=== PATIENT | female | born 1965 | race Caucasian/White ===

== ENCOUNTER 2022-12-12 08:09 | Outpatient (REF) | payer BC, SELFPAY ==
[2022-12-12 11:30] LABS: MANUAL DIFF FLAG NO
[2022-12-12 11:48] LABS: Basophils Percent Auto 0.9 % (0-2); Eosinophils Absolute Auto 0.2 X10*3/uL (0.0-0.4); Eosinophils Percent Auto 3.4 % (0-4); Hematocrit 43.7 % (37.0-47.0); Hemoglobin 14.7 g/dl (12.0-16.0); Imm Gran Abs Auto 0.01 X10*3/uL (0.00-0.03); Imm Gran Pct Auto 0.2 % (0.0-0.4); Lymphocytes Absolute Auto 1.6 X10*3/uL (1.2-4.9); Lymphocytes Percent Auto 33.9 % (20-40); Mean Corpuscular HGB Conc 33.6 g/dl (31.0-35.0); Mean Corpuscular Hemoglobin 30.4 pg (27.0-33.0); Mean Corpuscular Volume 90.5 fL (80.0-98.0); Mean Platelet Volume 11.2 fL (9.4-12.3); Monocytes Absolute Auto 0.3 X10*3/uL (0.1-1.2); Monocytes Percent Auto 5.4 % (2-11); Neutrophils Absolute Auto 2.6 x10*3/uL (2.0-8.3); Neutrophils Percent Auto 56.2 % (45-73); Platelet Count 165 X10*3/uL (160-400); Red Blood Count 4.83 X10*6/uL (4.20-5.50); Red Cell Distribution Width 12.7 % (11.0-16.0); White Blood Count 4.7 X10*3/uL (4.8-10.8)
[2022-12-12 12:08] LABS: Alanine Aminotransferase 15 U/L (0-31); Albumin Level 4.2 g/dL (3.5-5.0); Alkaline Phosphatase 69 U/L (39-117); Anion Gap 14 (12-20); Aspartate Amino Transferase 19 U/L (5-31); Bilirubin Total 0.8 mg/dL (0.0-1.0); Blood Urea Nitrogen 16 mg/dL (9-16); Carbon Dioxide 25 mmol/L (22-29); Chloride 109 mmol/L (96-108); Cholesterol 206 mg/dL; Estimated Glomerular Filt Rate > 60; Glucose Fasting 82 mg/dL (60-99); HDL Cholesterol 52 mg/dL; LDL Cholesterol Calculated 129 mg/dl; Sodium 144 mmol/L (135-145); Total Protein 6.9 g/dL (6.5-8.0); Triglycerides 129 mg/dL
[2022-12-12 12:25] LABS: TSH reflex Free T4 1.23 uIU/mL (0.32-4.0)
[2022-12-17 12:43] LABS: Vitamin D 25-OH, D2 <4 ng/mL; Vitamin D 25-OH, D3 35 ng/mL; Vitamin D 25-OH, Total 35 ng/mL (30-100)
== END 2022-12-12 08:10 | disposition home or self-care (01) ==
LOC: HO.HMGCLDS 08:09
PROVIDERS: PCP Internal Medicine; Visit Provider Internal Medicine
DX: Z00.00 Encounter for general adult medical examination without abnormal findings (principal); E66.9 Obesity, unspecified
CPT/HCPCS: 36415; 80053; 80061; 82306; 84443; 85025

== ENCOUNTER 2023-05-09 13:26 | Outpatient (AMB) | payer BC, SELFPAY ==
[2023-05-09 14:03] VITALS: BP 122/80; PULSE 78; TEMP 36.7; O2SAT 96; BMI 48.8
--- NOTE | 2023-05-09 14:03 | MHC.OFFWIV ---
Intake Vital Signs 05/09/23 14:03 Height 5 ft 1 in Weight 258 lb 8 oz BMI 48.8 BP 122/80 Blood Pressure Location Lt brachial Position Sitting Pulse 78 Pulse Source Pulse Oximeter Temp 98.1 F Temp Source Temporal Artery Scan Pulse Oximetry (%) 96 Oxygen Delivery Method Room Air Intake Visit Reasons: Poison Martha Intake Note: pt is here for c/o poison martha Patient Tobacco Use Status: Never used Tobacco Allergies acetaminophen [From Percocet] Adverse Reaction (Verified 05/09/23 14:04) rash oxycodone [From Percocet] Adverse Reaction (Verified 05/09/23 14:04) rash Do you need a note to return to daycare/school/sports/work: Yes HPI HPI Comments History of Present Illness Details This is a 57-year-old female with no stated past medical history presenting for evaluation of itchy red lesions on her arms bilaterally that have been present for the past 5 days. Patient states approximately 8 days ago she was at her camp in [place] removing weeds from the rock wall and she believes there was poison martha present. Patient has been using wbvq-[id number] soaps, cortisone cream and ointments including calamine lotion without complete relief of her discomfort. 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 Tobacco Use Status: Never used Tobacco e-Cigarette/Vaping Use: Never Used service: No Current occupational status: employed Cognitive needs: No Hearing needs: No Vision needs: Yes Review of Systems Const All systems reviewed & are unremarkable except as noted in HPI and below Denies chills, Denies fatigue and Denies fever(s) Skin/Breast Reports system reviewed and no additional complaints, except as documented, Reports pruritus and Reports lesions Neuro Reports no additional complaints Endo Denies fatigue Physical Exam Vital Signs: Last Vital Signs Temp 98.1 F 05/09/23 14:03 Pulse 78 05/09/23 14:03 BP 122/80 05/09/23 14:03 Pulse Ox 96 05/09/23 14:03 Oxygen Delivery Method Room Air 05/09/23 14:03 BMI result Body Mass Index 48.8 Const General: cooperative, healthy appearing, comfortable, no acute distress and well developed Nutritional Appearance: overweight Orientation/consciousness: patient oriented x3 Skin General skin exam: erythema Lesions: lesion noted (grouped vesicles in linear pattern volar surfaces of forearms bilaterally) and other ( No evidence of a secondary cellulitis) Neuro General: patient oriented x3 Assessment & Plan Assessment & Plan (1) Poison martha dermatitis: Code(s): L23.7 - Allergic contact dermatitis due to plants, except food Plan: Patient will be discharged home with a prednisone taper and she will follow up with her primary care physician within 7-10 days if her symptoms have not improved. Medications: New prednisone 20 mg orally 60mg x 3 days, 40mg x 3 days, 20mg x 3 days; 18 tabs 0RF Coding Level of Care Code Est Pt Level 3 (57361) Diagnoses Poison martha dermatitis L23.7 Time Spent (min) 20
== END 2023-05-09 14:47 | disposition home or self-care (01) ==
PROVIDERS: PCP Internal Medicine; Visit Provider Physician Assistant
DX: L23.7 Allergic contact dermatitis due to plants, except food (principal)
CPT/HCPCS: 99213

== ENCOUNTER 2024-03-01 08:02 | Outpatient (AMB) | payer BC, SELFPAY ==
--- NOTE | 2024-03-01 08:05 | A.OFFPC_ITS ---
Vital Signs 03/01/24 08:06 Height 5 ft 1 in Weight 212 lb BMI 40.1 BP 108/64 Blood Pressure Location Rt brachial Position Sitting Pulse 59 Pulse Source Pulse Oximeter Pulse Oximetry (%) 98 Oxygen Delivery Method Room Air Intake Visit Reasons: Annual PE Intake Note: Pt is here today for PE. Allergies acetaminophen [From Percocet] Adverse Reaction (Verified 03/01/24 08:07) rash oxycodone [From Percocet] Adverse Reaction (Verified 03/01/24 08:07) rash Medication List - Last Reconciled 03/01/24 by Katie Deshpande MD triamcinolone acetonide 0.1% 1 appl topical DAILY Tobacco use date assessed: 03/01/24 Dental Screening Dental Screen Date: 03/01/24 Did you have a dental visit in the last 12 months?: Yes Did you have a dental problem in the last 6 months where you did not have access to dental care?: No Was dental information given to patient?: Patient has dentist HPI Annual PE HPI Details Pt presents for PE. 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 1. Little interest or pleasure in doing things: not at all 2. Feeling down, depressed, or hopeless: not at all 3. Trouble falling or staying asleep, or sleeping too much: not at all 4. Feeling tired or having little energy: not at all 5. Poor appetite or overeating: not at all 6. Feeling bad about yourself - or that you are a failure or have let yourself or your family down: not at all 7. Trouble concentrating on things, such as reading the newspaper or watching television: not at all 8. Moving or speaking so slowly that other people could have noticed. Or the opposite - being so fidgety or restless that you have been moving around a lot more than usual: not at all 9. Thoughts that you would be better off or of hurting yourself in some way: not at all Total score: 0 Depression Screening Interpretation: Negative Depression Screening Done: Yes 30466 - PHQ-9 Billing: Yes Source: Developed by Drs. Trace Dougherty, Delicia Ramos, Hernandez Jenkins and colleagues, with an educational porsha from [email or web address] ([employer]). Thrive Questionnaire Date Thrive assessed: 03/01/24 I am a: Patient What is your living situation today?: I have a steady place to live Within the past 12 months, did the food you bought not last and you didn't have the money to get more?: Never true Within the past 12 months, did you worry whether your food would run out before you got money to buy more?: Never true Do you have trouble paying for medicines?: No Do you have trouble getting transportation to medical appointments?: No Do you have trouble paying your heating and electricity bill?: No Do you have trouble taking care of your child, family member or friend?: No Do you have trouble with day-to-day activities such as bathing, preparing meals, shopping, managing finances, etc.?: No Are you currently unemployed and looking for a job?: No Are you interested in more education?: No Please select the resources that you would like help with: Housing/Long Term Currently or been in a relationship where the following occur: No concerns reported THRIVE Score: 0 AUDIT C Alcohol Use Questionnaire (AUDIT-C) 1. How often do you have a drink containing alcohol?: 2-4 times a month 2. How many drinks containing alcohol do you have on a typical day when you are drinking?: 1 or 2 3. How often do you have six or more drinks on one occasion?: Never Total Score: 2 JOSH-7 AMB Questionnaire JOSH-7 Date JOSH - 7 assessed: 03/01/24 Feeling nervous, anxious, or on edge: 0 = Not at all Not being able to stop or control worryin = Not at all Worrying too much about different things: 0 = Not at all Trouble relaxin = Not at all Being so restless that it is hard to sit still: 0 = Not at all Becoming easily annoyed or irritable: 0 = Not at all Feeling afraid as if something awful might happen: 0 = Not at all Total JOSH-7 score (0-4 normal; 5-9 mild; 10-14 moderate; 15-21 severe): 0 Source: Developed by Drs. Trace Dougherty, Delicia Ramos, Hernandez Jenkins and colleagues, with an educational porsha from [email or web address] ([employer]). Review of Systems Const All systems reviewed & are unremarkable except as noted in HPI and below Eyes Reports no additional complaints ENT Reports no additional complaints Card Reports no additional complaints Resp Reports no additional complaints GI Reports no additional complaints Reports no additional complaints Musc Reports no additional complaints Physical exam (Primary Care) Vital Signs: Last Vital Signs Pulse 59 03/01/24 08:06 BP 108/64 03/01/24 08:06 Pulse Ox 98 03/01/24 08:06 Oxygen Delivery Method Room Air 03/01/24 08:06 BMI result Body Mass Index 40.1 Tobacco/Smoking Status: Tobacco use Status Tobacco use date assessed 03/01/24 03/01/24 08:11 Patient Tobacco Use Status Never used Tobacco 03/01/24 08:11 e-Cigarette/Vaping Use Never Used 03/01/24 08:11 PHQ-9: PHQ-9 Score PHQ-9: Total score 0 03/01/24 08:11 Depression Screening Interpretation: Negative Thrive Assessment: Date of Thrive Assessment Date Thrive assessed 03/01/24 03/01/24 08:11 Currently or been in a relationship where the following occur: No concerns reported Const General: no acute distress HENMT Other: 3 cm soft subcutenous mass, no tender mobile Ears: hearing grossly normal bilaterally Face and sinus: Yes normal facial exam Mouth: Normal oral and palatal mucosa present Eyes General: appearance normal, both eyes and all related structures Neck Neck: Yes no lymphadenopathy and Yes supple Resp Effort & Inspection: normal respiratory effort Auscultation: clear to auscultation bilaterally Cardio Rhythm: regular rhythm Heart sounds: S1 normal heart sound present and S2 normal heart sound present GI Inspection: Yes normal to inspection Palpation (GI): Soft to palpation Percussion: Yes normal to percussion Auscultation: normal bowel sounds Assessment and Plan Assessment & Plan (1) Lipoma of skin: Comment: forehead Code(s): D17.30 - Benign lipomatous neoplasm of skin and subcutaneous tissue of unspecified sites Plan: refer to surgeon (2) Eczema: Code(s): L30.9 - Dermatitis, unspecified Plan: refer to dermatology (3) Annual physical exam: Code(s): Z00.00 - Encounter for general adult medical examination without abnormal findings Plan: Well-balanced diet regular physical activity discussed with the patient. She is up-to-date with the mammogram Pap smear colonoscopy. (4) Hx of colonoscopy: Comment: at 52 Code(s): Z98.890 - Other specified postprocedural states Orders: Orders Lipid Panel Today Z00.00 - Encounter for general adult medical examination without abnormal findings, Z98.890 - Other specified postprocedural states Comprehensive [place]. Panel Fast Today Z00.00 - Encounter for general adult medical examination without abnormal findings, Z98.890 - Other specified postprocedural states Complete Blood Count Auto Diff Today Z00.00 - Encounter for general adult me dical examination without abnormal findings, Z98.890 - Other specified postprocedural states Referrals General Surgery Referral D17.30 - Benign lipomatous neoplasm of skin and subcutaneous tissue of unspecified sites Dermatology Referral L30.9 - Dermatitis, unspecified Medications: New triamcinolone acetonide 0.1% 1 appl topical DAILY 30 grams 0RF Coding Level of Care Code Est Pt Prev Care 40-64y(85886) Diagnoses Lipoma of skin D17.30 Eczema L30.9 Annual physical exam Z00.00 Hx of colonoscopy Z98.890
[2024-03-01 08:06] VITALS: BP 108/64; PULSE 59; O2SAT 98; BMI 40.1
== END 2024-03-01 08:49 | disposition home or self-care (01) ==
PROVIDERS: PCP Internal Medicine; Visit Provider Internal Medicine
DX: D17.30 Benign lipomatous neoplasm of skin and subcutaneous tissue of unspecified sites (principal); L30.9 Dermatitis, unspecified; Z00.00 Encounter for general adult medical examination without abnormal findings; Z98.890 Other specified postprocedural states
CPT/HCPCS: 99396

== ENCOUNTER 2024-03-01 08:41 | Outpatient (REF) | payer BC, SELFPAY ==
[2024-03-01 10:00] LABS: MANUAL DIFF FLAG NO
[2024-03-01 10:06] LABS: Basophils Percent Auto 0.6 % (0-2); Eosinophils Absolute Auto 0.1 X10*3/uL (0.0-0.4); Eosinophils Percent Auto 2.4 % (0-4); Hematocrit 45.1 % (37.0-47.0); Hemoglobin 15.4 g/dl (12.0-16.0); Imm Gran Abs Auto 0.01 X10*3/uL (0.00-0.03); Imm Gran Pct Auto 0.2 % (0.0-0.4); Lymphocytes Absolute Auto 1.8 X10*3/uL (1.2-4.9); Mean Corpuscular HGB Conc 34.1 g/dl (31.0-35.0); Mean Corpuscular Volume 90.9 fL (80.0-98.0); Mean Platelet Volume 11.3 fL (9.4-12.3); Monocytes Absolute Auto 0.4 X10*3/uL (0.1-1.2); Monocytes Percent Auto 7.1 % (2-11); Neutrophils Absolute Auto 3.1 x10*3/uL (2.0-8.3); Neutrophils Percent Auto 56.7 % (45-73); Platelet Count 165 X10*3/uL (160-400); Red Blood Count 4.96 X10*6/uL (4.20-5.50); Red Cell Distribution Width 12.3 % (11.0-16.0); White Blood Count 5.4 X10*3/uL (4.8-10.8)
[2024-03-01 10:30] LABS: Alanine Aminotransferase 18 U/L (0-31); Albumin Level 4.4 g/dL (3.5-5.0); Alkaline Phosphatase 80 U/L (39-117); Anion Gap 9 (12-20); Aspartate Amino Transferase 18 U/L (5-31); Bilirubin Total 0.6 mg/dL (0.0-1.0); Blood Urea Nitrogen 21 mg/dL (9-16); Calcium 10.5 mg/dL (8.4-10.2); Carbon Dioxide 30 mmol/L (22-29); Chloride 108 mmol/L (96-108); Cholesterol 174 mg/dL (<200); Estimated Glomerular Filt Rate > 60; Glucose Fasting 95 mg/dL (60-99); HDL Cholesterol 51 mg/dL (>40); LDL Cholesterol Calculated 104 mg/dL (<100); Potassium 4.3 mmol/L (3.3-5.1); Sodium 143 mmol/L (135-145); Total Protein 7.1 g/dL (6.5-8.0); Triglycerides 99 mg/dL (<150)
== END 2024-03-01 08:42 | disposition home or self-care (01) ==
LOC: HO.HMGCLDS 08:41
PROVIDERS: PCP Internal Medicine; Visit Provider Internal Medicine
DX: Z00.00 Encounter for general adult medical examination without abnormal findings (principal); Z98.890 Other specified postprocedural states
CPT/HCPCS: 36415; 80053; 80061; 85025

== ENCOUNTER 2024-03-11 12:56 | Outpatient (REF) | payer BC, SELFPAY | END 2024-03-11 12:57 | disposition home or self-care (01) | LOC: HO.LNP 12:56 | PROVIDERS: PCP Internal Medicine; Referring Provider Internal Medicine; Visit Provider Surgery | DX: K72.11 Chronic hepatic failure with coma (principal) | CPT/HCPCS: 11423; 88304 ==

== ENCOUNTER 2024-03-11 12:56 | Outpatient (AMB) | payer BC, SELFPAY ==
[2024-03-11 13:02] VITALS: BP 156/77; PULSE 70; BMI 40.4
--- NOTE | 2024-03-11 13:02 | MHC.OFFVIS ---
Vital Signs 03/11/24 13:02 Height 5 ft 1 in Weight 214 lb BMI 40.4 BP 156/77 H Blood Pressure Location Rt brachial Position Sitting Pulse 70 Intake Visit Reasons: ? lipoma~ forehead Intake Note: Patient referred by pcp Dr. Deshpande for ? lipoma on forehead. Present for yrs. Hx of other lipomas removed by Dr. Chen at the [facility] in [place]. Patient c/o: enlarging, itchy. Denies pain. 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 She has had this several years time. She would like to have removed because it is increasing in size and become more symptomatic. She has had multiple cysts over the years excised from the scalp. 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 Tobacco Use Status: Never used Tobacco e-Cigarette/Vaping Use: Never Used service: No Current occupational status: employed Cognitive needs: No Hearing needs: No Vision needs: Yes Physical Exam Vital Signs: Last Vital Signs Pulse 70 03/11/24 13:02 BP 156/77 H 03/11/24 13:02 BMI result Body Mass Index 40.4 HEENT Other: Proximally 3 x 2 cm left frontal scalp octavio Office Procedures Excision Details: Risks, benefits, alternatives of excision of frontal scalp cyst reviewed the patient included but not limited to bleeding, infection, recurrence, numbness, pain, scarring the patient wished to proceed. All questions answered Consent was signed. After appropriate positioning, patient underwent 1% lidocaine and Betadine prep and a longitudinal incision made over the left frontal cyst in question with its uneventful enucleation. Specimen sent to pathology. Wound was irrigated, secured hemostasis, and closed using interrupted 2-0 Prolene suture followed by bacitracin. Patient tolerated procedure well 70424-[id number] scalp/neck/hands/feet/genitalia 2.1cm-3cm Procedure code (CPT) selection complete Office Meds lidocaine 1 %-epinephrine 1:100,000 injection solution Performing Provider: Aaron Luevano MD Performing Location: [facility] [place] General Surgeons Administered by: Aaron Luevano MD on 03/11/24 13:57 Dose Route Admin Location Dispensed Lot Number Expiration Date NDC Wash Test Checker 10 mL Infiltration 10 mL Assessment & Plan Assessment & Plan (1) Pilar cyst of scalp: Code(s): L72.11 - Pilar cyst Category: Surgical Plan: Patient has been given local instructions including isolate the wound periodically, Tylenol and/or Motrin p.r.n. pain, may shower tomorrow, bacitracin to the wound each day, and the patient will see me in 1.5 weeks time or p.r.n.. All questions answered Orders: Orders Surgical Today D17.30 - Benign lipomatous neoplasm of skin and subcutaneous tissue of unspecified sites, L72.11 - Pilar cyst AMB Excision Today L72.11 - Pilar cyst Medications: New lidocaine-epinephrine 1 %-1:100,000 10 mL Infiltration ONCE 30 mL 0RF L72.11 - Pilar cyst Coding Level of Care Code New Pt Level 5 (38009) Diagnoses Pilar cyst of scalp L72.11 CPT Codes Scalp/Neck/Hands/Feet/Genetalia - CPT: 07896-Fjtysqhk scalp/neck/hands/feet/genitalia 2.1cm-3cm ([id number])
== END 2024-03-11 13:28 | disposition home or self-care (01) ==
PROVIDERS: PCP Internal Medicine; Referring Provider Internal Medicine; Visit Provider Surgery
DX: L72.11 Pilar cyst (principal)
CPT/HCPCS: 11423; 99204

== ENCOUNTER 2024-03-20 08:08 | Outpatient (AMB) | payer BC, SELFPAY ==
--- NOTE | 2024-03-20 08:15 | A.OFFVIS_ITS ---
Intake Visit Reasons: 1 07/25 we follow up ? lipoma~ forehead Intake Note: Patient here s/p exc on mid frontal scalp line on 03-11-2024. Reports incision healing well. Patient c/o: 2 sutures removed without incident. 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 No wound issues or complaints. Pathology was benign. 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 Wound clean dry and intact. Assessment & Plan Assessment & Plan (1) Postop check: Code(s): Z09 - Encounter for follow-up examination after completed treatment for conditions other than malignant neoplasm Category: Surgical (2) Pilar cyst of scalp: Code(s): L72.11 - Pilar cyst Category: Surgical Plan Patient was given local instructions, and will follow-up p.r.n.. All questions answered Coding Level of Care Code Global (17929) Diagnoses Postop check Z09 Pilar cyst of scalp L72.11
== END 2024-03-20 08:26 | disposition home or self-care (01) ==
PROVIDERS: PCP Internal Medicine; Visit Provider Surgery
DX: Z09 Encounter for follow-up examination after completed treatment for conditions other than malignant neoplasm (principal); L72.11 Pilar cyst
CPT/HCPCS: 99024

== ENCOUNTER → 2024-03-20 08:08 | Outpatient (BNVA) | payer BC, SELFPAY | PROVIDERS: PCP Internal Medicine; Visit Provider Surgery ==

== ENCOUNTER 2025-03-28 08:24 | Outpatient (AMB) | payer BC, SELFPAY ==
--- NOTE | 2025-03-28 08:27 | MHC.PC.OV ---
Vital Signs 03/28/25 08:36 Height 5 ft 1 in Weight 232 lb BMI 43.8 BP 110/70 Blood Pressure Location Rt brachial Position Sitting Respiration 18 Pulse 62 Pulse Source Pulse Oximeter Temp 98.2 F Temp Source Oral Pulse Oximetry (%) 97 Oxygen Delivery Method Room Air Intake Visit Reasons: Annual PE Intake Note: Pt is here today for PE. Allergies acetaminophen (From Percocet) Adverse Reaction (Verified 03/28/25 08:37) rash oxycodone (From Percocet) Adverse Reaction (Verified 03/28/25 08:37) rash Medication List - Last Reconciled 03/28/25 by Katie Deshpande MD triamcinolone acetonide 0.1% 1 appl topical DAILY Tobacco use date assessed: 03/28/25 Dental Screening Dental Screen Date: 03/28/25 Did you have a dental visit in the last 12 months?: Yes Did you have a dental problem in the last 6 months where you did not have access to dental care?: No Was dental information given to patient?: Patient has dentist HPI Annual PE HPI Details Pt presents for PE. 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 1. Little interest or pleasure in doing things: not at all 2. Feeling down, depressed, or hopeless: not at all 3. Trouble falling or staying asleep, or sleeping too much: not at all 4. Feeling tired or having little energy: not at all 5. Poor appetite or overeating: not at all 6. Feeling bad about yourself - or that you are a failure or have let yourself or your family down: not at all 7. Trouble concentrating on things, such as reading the newspaper or watching television: not at all 8. Moving or speaking so slowly that other people could have noticed. Or the opposite - being so fidgety or restless that you have been moving around a lot more than usual: not at all 9. Thoughts that you would be better off or of hurting yourself in some way: not at all Total score: 0 Depression Screening Interpretation: Negative Depression Screening Done: Yes 57385 - PHQ-9 Billing: Yes Source: Developed by Drs. Trace Dougherty, Delicia Ramos, Hernandez Jenkins and colleagues, with an educational porsha from [employer]. Thrive Questionnaire Date Thrive assessed: 03/28/25 I am a: Patient What is your living situation today?: I have a steady place to live Within the past 12 months, did the food you bought not last and you didn't have the money to get more?: Never true Within the past 12 months, did you worry whether your food would run out before you got money to buy more?: Never true Do you have trouble paying for medicines?: No Do you have trouble getting transportation to medical appointments?: No Do you have trouble paying your heating and electricity bill?: No Do you have trouble taking care of your child, family member or friend?: No Do you have trouble with day-to-day activities such as bathing, preparing meals, shopping, managing finances, etc.?: No Are you currently unemployed and looking for a job?: No Are you interested in more education?: No Please select the resources that you would like help with: None Currently or been in a relationship where the following occur: No concerns reported THRIVE Score: 0 AUDIT C Alcohol Use Questionnaire (AUDIT-C) 1. How often do you have a drink containing alcohol?: 2-3 times a week 2. How many drinks containing alcohol do you have on a typical day when you are drinking?: 1 or 2 3. How often do you have six or more drinks on one occasion?: Never Total Score: 3 JOSH-7 AMB Questionnaire JOSH-7 Date JOSH - 7 assessed: 03/28/25 Feeling nervous, anxious, or on edge: 0 = Not at all Not being able to stop or control worryin = Not at all Worrying too much about different things: 0 = Not at all Trouble relaxin = Not at all Being so restless that it is hard to sit still: 0 = Not at all Becoming easily annoyed or irritable: 0 = Not at all Feeling afraid as if something awful might happen: 0 = Not at all Total JOSH-7 score (0-4 normal; 5-9 mild; 10-14 moderate; 15-21 severe): 0 Source: Developed by Drs. Trace Dougherty, Delicia Ramos, Hernandez Jenkins and colleagues, with an educational porsha from [employer]. JOSH-7 Assessment Billing JOSH-7 Assessment Tool: JOSH-7 Assessment 60905 Review of Systems Const All systems reviewed & are unremarkable except as noted in HPI and below Eyes Reports no additional complaints ENT Reports no additional complaints Card Reports no additional complaints Resp Reports no additional complaints GI Reports no additional complaints Reports no additional complaints Physical exam (Primary Care) Vital Signs: Last Vital Signs Temp 98.2 F 03/28/25 08:36 Pulse 62 03/28/25 08:36 Resp 18 03/28/25 08:36 BP 110/70 03/28/25 08:36 Pulse Ox 97 03/28/25 08:36 Oxygen Delivery Method Room Air 03/28/25 08:36 BMI result Body Mass Index 43.8 Tobacco/Smoking Status: Tobacco use Status Tobacco use date assessed 03/28/25 03/28/25 08:43 Patient Tobacco Use Status Never used Tobacco 03/28/25 08:29 e-Cigarette/Vaping Use Never Used 03/28/25 08:29 PHQ-9: PHQ-9 Score PHQ-9: Total score 0 03/28/25 08:48 Depression Screening Interpretation: Negative Thrive Assessment: Date of Thrive Assessment Date Thrive assessed 03/28/25 03/28/25 08:43 Currently or been in a relationship where the following occur: No concerns reported Const General: no acute distress HENMT Head: Yes normal to inspection Ears: hearing grossly normal bilaterally Mouth: Normal oral and palatal mucosa present Eyes General: appearance normal, both eyes and all related structures Neck Neck: Yes no lymphadenopathy and Yes supple Resp Effort & Inspection: normal respiratory effort Auscultation: clear to auscultation bilaterally Cardio Rhythm: regular rhythm Heart sounds: S1 normal heart sound present and S2 normal heart sound present GI Inspection: Yes normal to inspection Palpation (GI): Soft to palpation Percussion: Yes normal to percussion Auscultation: normal bowel sounds Coding Level of Care Code Est Pt Prev Care 40-64y(51724) Diagnoses Hx of colonoscopy Z98.890 Obesity E66.9 Annual physical exam Z00.00 Additional Codes JOSH-7 Assessment Billing - JOSH-7 Assessment Tool: JOSH-7 Assessment 95315 ([id number]) PHQ-9 - 73740 - PHQ-9 Billing: Yes ([id number]) Assessment & Plan Assessment & Plan (1) Hx of colonoscopy: Comment: at [address] [place] Code(s): Z98.890 - Other specified postprocedural states Category: Surgical Plan: up to date (2) Obesity: Code(s): E66.9 - Obesity, unspecified Category: Medical Plan: increase physical activity, decrease caloric intake and weight loss discussed, (3) Annual physical exam: Code(s): Z00.00 - Encounter for general adult medical examination without abnormal findings Category: Medical Plan: Well-balanced diet regular physical activity discussed with the patient. 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 Patient will have a fasting blood work today Orders: Orders Complete Blood Count Auto Diff Today Z00.00 - Encounter for general adult medical examination without abnormal findings Lipid Panel Today Z00.00 - Encounter for general adult medical examination without abnormal findings TSH reflex Free T4 Today Z00.00 - Encounter for general adult medical examination without abnormal findings Vitamin D 25-OH Total Today Z00.00 - Encounter for general adult medical examination without abnormal findings UA w Microscopic Today Z00.00 - Encounter for general adult medical examination without abnormal findings Comprehensive [place]. Panel Fast Today Z00.00 - Encounter for general adult medical examination without abnormal findings
[2025-03-28 08:36] VITALS: BP 110/70; PULSE 62; RESP 18; TEMP 36.8; O2SAT 97; BMI 43.8
--- OUTSIDE RECORDS SUMMARY | 2025-03-28 08:52 | XMS_ITS | Patient Health Record ---
Author [facility] Address [address] [place] [address] Care Team Providers Care Research Associate Policy Name Role Phone Katie Deshpande MD Primary Care Provider Haylee Masters Unavailable [phone] Allergies Allergen (clinical drug ingredient) Drug/Non Drug Allergy documented on EMR Reaction Allergy Type Onset Date Status oxycodone OxyContin rash Drug Allergy Active acetaminophen / oxycodone Percocet Skin Rash Drug Allergy Active Results Component Value Reference Range Notes Urinalysis Reviewed date:01/31/2025 09:18:52 AM Interpretation: Performing Lab: Notes/Report: PH 5.0 PROTEIN Neg GLUCOSE Neg BLOOD Neg Reason For Referral No Information Social History Tobacco Use: Social History Observation Description Date Details (start date - stop date) Never Smoker NA - NA AUDIT-C (Standard) Question Answer Notes Did you have a drink contain ing alcohol in the past year? Yes How often did you have a dri nk containing alcohol in the past year? Daily or almost daily (4 points) How many drinks did you have on a typical day when you were drinking in the past year? 1 or 2 drinks (0 point) How often did you have six o r more drinks on one occasion in the past year? Never (0 point) Points 4 Interpretation Positive Tobacco Control (Standard) Question Answer Notes Tobacco use: Nonsmoker Problems Problem Type SNOMED Code ICD Code Onset Dates Problem Status W/U Status Risk Notes Problem Postmenopausal atrophic vaginitis (96616732) Postmenopausal atrophic vaginitis (N95.2) Active confirmed Problem Endometrial hyperplasia (033286753) Endometrial hyperplasia, unspecified (N85.00) Active confirmed Problem Atrophy of vulva (341994634) Atrophy of vulva (N90.5) Active confirmed Problem Unspecified menopausal and perimenopausal disorder (N95.9) Active confirmed Problem Menopause (380531862) Menopausal and female climacteric states (N95.1) Active confirmed Problem Gynecological examination normal (167648110040174) Routine gynecological examination (V72.31) Active confirmed Major Vital Signs Temperature 97.4 degrees Fahrenheit 01/31/2025 Blood pressure diastolic 80 mm Hg 01/31/2025 Height 61.5 in 01/31/2025 Blood pressure systolic 118 mm Hg 01/31/2025 Weight 235 lbs 01/31/2025 BMI 43.68 kg/m2 01/31/2025 Encounters Encounter Location Date Provider Diagnosis [facility] [address] [place] [address] 01/31/2025 Haylee Hutson Encounter for gynecological examination (general) (routine) without abnormal findings Z01.419 ; Encounter for screening mammogram for malignant neoplasm of breast Z12.31 and Personal history of other diseases of the female genital tract Z87.42 Assessments Encounter Date Diagnosis (ICD Code) Assessment Notes Treatment Notes Treatment Clinical Notes Section Notes 01/31/2025 Encounter for gynecological examination (general) (routine) without abnormal findings (ICD-10 - Z01.419) NO MORE PAP TESTS. 01/31/2025 Encounter for screening mammogram for malignant neoplasm of breast (ICD-10 - Z12.31) REGULAR MAMMOGRAMS AND SBE'S WERE RECOMMENDED. 01/31/2025 Personal history of other diseases of the female genital tract (ICD-10 - Z87.42) DISCUSSED PREVIOUS HX OF ENDOMETRIAL HYPERPLASIA AND ITS SIGNIFICANCE. Plan Of Treatment Pending Test Test Name Order Date MAMMOGRAM, SCREENING 09/26/2014 Urinalysis 01/07/2019 Urinalysis 01/11/2021 Urinalysis 01/12/2022 Urinalysis 01/16/2023 MM Digital Mammo Screening 01/16/2023 MM Digital Mammo Screening 01/29/2024 MM Digital Mammo Screening 01/31/2025 MM Digital Mammo Screening 01/12/2022 MM Digital Mammo Screening 01/09/2020 MM Digital Mammo Screening 01/11/2021 Next Appt Details Provider Name:Haylee hernandez, 02/06/2026 08:50:00 AM, [address], [place], [address], Insurance Providers Payer Name Payer Address Payer Phone Subscriber Number Group Number Insured Name Patient Relationship to Insured Coverage Start Date Coverage End Date [employer] [place] [address] [place] [address] [id number] SREEKANTH CARVALHO Spouse - patient is the spouse of the insured Medical (General) History Medical History History ICD Code Endometrial hyperplasia, unspecified N85 .00 Atrophy of vulva N90.5 Postmenopausal atrophic vaginitis N95.2 Dyspareunia N94.1 Unspecified menopausal and perimenopausa l disorder N95.9 Inconclusive mammogram R92.2 Menopausal and female climacteric states N95.1 Surgical History Surgery Date(Month/Year) Right Shoulder Surgery Pilar Cysts Scalp Excision x 1 Breast Reduction [facility] [place] Teeth Extraction Laprascopic Knee Torn Meniscus LT Shoulder Surgery 11/29/2021 Colonoscopy Hospitalization History Reason Date(Month/Year) See Surgical Hx
== END 2025-03-28 08:53 | disposition home or self-care (01) ==
LOC: HO.HMCC 08:25
PROVIDERS: PCP Internal Medicine; Visit Provider Internal Medicine
DX: Z00.00 Encounter for general adult medical examination without abnormal findings (principal); E66.9 Obesity, unspecified; Z68.41 Body mass index [BMI] 40.0-44.9, adult; Z98.890 Other specified postprocedural states

== ENCOUNTER 2025-03-28 08:24 | Outpatient (REF) | payer BC, SELFPAY ==
[2025-03-28 10:38] LABS: MANUAL DIFF FLAG NO
[2025-03-28 10:45] LABS: Appearance Urine Turbid; Glucose Urine UA Negative (Negative); PH 5.0 (5.0-9.0); Specific Gravity - Urine 1.025 (1.005-1.025)
[2025-03-28 10:48] LABS: Hematocrit 43.2 % (37.0-47.0); Hemoglobin 15.3 g/dl (12.0-16.0); Imm Gran Abs Auto 0.01 X10*3/uL (0.00-0.03); Imm Gran Pct Auto 0.2 % (0.0-0.4); Lymphocytes Absolute Auto 1.6 X10*3/uL (1.2-4.9); Mean Corpuscular HGB Conc 35.4 g/dl (31.0-35.0); Mean Corpuscular Hemoglobin 31.4 pg (27.0-33.0); Mean Corpuscular Volume 88.5 fL (80.0-98.0); NRBC Abs Auto 0.000 X10*3/uL (0.0-0.012); NRBC Pct Auto 0.0 /100WBC (0.0-0.2); Platelet Count 183 X10*3/uL (160-400); Red Blood Count 4.88 X10*6/uL (4.20-5.50); White Blood Count 4.6 X10*3/uL (4.8-10.8)
[2025-03-28 11:25] LABS: Alanine Aminotransferase 16 U/L (0-31); Albumin Level 4.6 g/dL (3.5-5.0); Alkaline Phosphatase 57 U/L (39-117); Anion Gap 13 (12-20); Aspartate Amino Transferase 24 U/L (5-31); Blood Urea Nitrogen 24 mg/dL (9-16); Calcium 9.8 mg/dL (8.4-10.2); Carbon Dioxide 24 mmol/L (22-29); Chloride 109 mmol/L (96-108); Cholesterol 192 mg/dL (<200); Estimated Glomerular Filt Rate 55; HDL Cholesterol 51 mg/dL (>40); Potassium 4.4 mmol/L (3.3-5.1); Sodium 142 mmol/L (135-145); Total Protein 7.2 g/dL (6.5-8.0); Triglycerides 95 mg/dL (<150)
== END 2025-03-28 08:25 | disposition home or self-care (01) ==
LOC: HO.HMGCLDS 08:24
PROVIDERS: PCP Internal Medicine; Visit Provider Internal Medicine
DX: Z00.00 Encounter for general adult medical examination without abnormal findings (principal); E66.9 Obesity, unspecified; Z98.890 Other specified postprocedural states; Z68.41 Body mass index [BMI] 40.0-44.9, adult
CPT/HCPCS: 36415; 80053; 80061; 81001; 82306; 84443; 85025; 96127